=== PATIENT | male | born 1930 | race Caucasian/White ===

== ENCOUNTER → 2016-12-27 | Outpatient (CLI) | payer MEDICARE, OTHER ==
--- NOTE | 2016-12-28 08:09 | RAD ---
EXAM DESCRIPTION: Chest,2 Views CLINICAL HISTORY: HEART FAILURE COMPARISON: None TECHNIQUE: PA/lateral FINDINGS: The lungs are well expanded and clear. No infiltrates or effusions or masses are noted. The heart is normal in size and shape with no evidence of vascular congestion. The yolanda and mediastinum demonstrate normal contours. Mild anterior wedging of a lower dorsal vertebral segment likely represents an old finding. IMPRESSION: No acute cardiopulmonary disease. Electronically signed by: Jaiden Norwodo MD 12/28/2016 8:09 AM CDT
== END | disposition home or self-care (01) ==
LOC: RESP 15:44
PROVIDERS: ATTEND Nurse Practitioner Family
DX: I11.0 Hypertensive heart disease with heart failure (principal); I50.9 Heart failure, unspecified

== ENCOUNTER 2017-01-09 01:00 | Emergency (ER) | payer MEDICARE, OTHER ==
--- NOTE | 2017-01-09 01:21 | ED.PDOC ---
History of Present Illness - General Chief Complaint: Respiratory Problem Stated Complaint: SOB Time Seen by Provider: 01/09/17 01:17 Source: patient Exam Limitations: physical impairment - hard of hearing - History of Present Illness Initial Comments: Quang Black 86 y/o male stated that he got SOB while laying down on his bed tonight.No chest pains,no cough.Seen by his primary md for same symptoms and was prescribed lisinopril and carvedilol.He was told has problems with his aorta and heart valves.Denies chronic medical problems.Had ct/abd-p 04/08/15- ovoid complex mass left side pelvis,enlarged prostate,copd.Has appointment with cloth printing utility worker February 01. Timing/Duration: 1-3 hours Severity: moderate Activities at Onset: rest Possible Cause: occasional episodes Worsening Factors: nothing Associated Symptoms: denies symptoms Respiratory Risk Factors: no cause identified Allergies/Adverse Reactions: Allergies NO KNOWN ALLERGY Allergy (Verified 01/09/17 01:19) Home Medications: Ambulatory Orders Carvedilol [Coreg] 3.125 mg PO BID 01/09/17 Levothyroxine Sodium [Synthroid] 0.025 mg PO BEDTIME #30 tab 01/09/17 Lisinopril 10 mg PO DAILY 01/09/17 Review of Systems - Review of Systems Constitutional: States: no symptoms reported EENTM: States: no symptoms reported Respiratory: States: see HPI Cardiology: States: no symptoms reported Gastrointestinal/Abdominal: States: no symptoms reported Genitourinary: States: frequency Musculoskeletal: States: no symptoms reported Skin: States: no symptoms reported Neurological: States: no symptoms reported Endocrine: States: no symptoms reported Past Medical History (General) - Patient Medical History Surgical History: cholecystectomy - gastric surgery, other - Social History Hx Tobacco Use: No Hx Alcohol Use: Yes - Activities of Daily Living Patient Lives Alone: Yes - nephew lives nearby Family Medical History - Family History Mother Family History: Unknown Living Status: Physical Exam - Physical Exam General Appearance: Alert, No apparent distress Eyes, Ears, Nose, Throat Exam: PERRL/EOMI, normal ENT inspection, TMs normal, other - hard of hearing Neck: non-tender, full range of motion, supple Respiratory: chest non-tender, no respiratory distress, decreased breath sounds , other - pectus excavatum Cardiovascular/Chest: normal peripheral pulses, regular rate, rhythm, no gallop , systolic murmur - grade 3/6 systolic 2nd left ics Peripheral Pulses: radial,right: 1+, radial,left: 1+ Gastrointestinal/Abdominal: normal bowel sounds, non tender, soft, other - scars from previous surgery Extremity: non-tender, no pedal edema, no calf tenderness Neurologic: no motor/sensory deficits, alert, oriented x 3 Skin Exam: normal color, warm/dry Lymphatic: no adenopathy Progress - Progress Progress: 01/09/17 01:49 Vital Signs - 8 hr 01/09/17 01/09/17 01/09/17 01:00 01:13 01:47 Temperature 96.7 F L Pulse Rate 67 74 68 Pulse Rate [ 67 monitor] Respiratory 16 16 16 Rate Blood Pressure 148/82 [Left Arm] O2 Sat by Pulse 99 99 Oximetry 01/09/17 02:36 Has d-dimer 577 but saturating 95%-!00% room air no tachycardia or risk factors for PE.Patient presently feels better after one nebulizer treatment and iv solu medrol. - Results/Orders Results/Orders: Vital Signs - 8 hr 01/09/17 01/09/17 01/09/17 01:00 01:13 01:47 Temperature 96.7 F L Pulse Rate 67 74 68 Pulse Rate [ 67 monitor] Respiratory 16 16 16 Rate Blood Pressure 148/82 [Left Arm] O2 Sat by Pulse 99 99 Oximetry Has d-dimer 01/09/17 01:24 URINALYSIS Stat 01/09/17 01:27 SVN/Updraft Therapy .ONCE 01/09/17 01:30 EKG STAT 01/09/17 09:00 [facility] Daily Laboratory Results - last 24 hr 01/09/17 01/09/17 01/09/17 01:30 01:30 01:30 WBC 6.0 RBC 3.39 L Hgb 9.3 L Hct 28.8 L MCV 85.1 MCH 27.4 MCHC 32.3 L RDW 16.8 H Plt Count 235 MPV 7.9 Absolute Neuts (auto) 3.60 Absolute Lymphs (auto) 1.60 Absolute Monos (auto) 0.70 Absolute Eos (auto) 0.10 Absolute Basos (auto) 0.10 Neutrophils % 59.1 Lymphocytes % 26.5 Monocytes % 11.1 H Eosinophils % 2.2 Basophils % 1.1 PT 12.4 INR 1.100 PTT (SP) 36.9 H D-Dimer, Quantitative 577 H* Sodium 137 Potassium 4.7 Chloride 105 Carbon Dioxide 26 Anion Gap 10.7 L BUN 25 H Creatinine 1.42 H BUN/Creatinine Ratio 17.6 Random Glucose 107 H Serum Osmolality 278.7 Calcium 8.6 Magnesium 1.5 L Total Bilirubin 0.4 Direct Bilirubin < 0.1 Indirect Bilirubin 0.3 AST 16 ALT 10 Alkaline Phosphatase 64 Creatine Kinase 54 CK-MB (CK-2) 2.4 CK-MB (CK-2) % Not Reportable Troponin I 0.03 B-Natriuretic Peptide 242.0 H* Serum Total Protein 6.6 Albumin 2.9 L TSH 7.30 H - EKG/XRAY/CT EKG: Sinus, no ST T wave changes Comments: heart rate-66;PAC's XRAY: chest - no acute abnormalities/radiologist Departure - Departure Clinical Impression: Valvular heart disease, Anemia in chronic illness, Renal insufficiency, Hypomagnesemia Dyspnea Qualifiers: Dyspnea type: unspecified Qualified Code(s): R06.00 - Dyspnea, unspecified Hypothyroidism Qualifiers: Hypothyroidism type: unspecified Qualified Code(s): E03.9 - Hypothyroidism, unspecified Time of Disposition: 03:10 Disposition: Discharge to Home or Self Care Condition: Fair Departure Forms: ED Discharge - Pt. Copy, Patient Portal Self Enrollment Referrals: Barry Bennett MD [Primary Care Provider] - 1-2 Weeks Prescriptions: Levothyroxine Sodium [Synthroid] 0.025 mg PO BEDTIME #30 tab Home Medications: Ambulatory Orders Carvedilol [Coreg] 3.125 mg PO BID 01/09/17 Levothyroxine Sodium [Synthroid] 0.025 mg PO BEDTIME #30 tab 01/09/17 Lisinopril 10 mg PO DAILY 01/09/17 Additional Instructions: Keep appointment with cloth printing utility worker;Return to emergency room as needed;Continue with current medications
[2017-01-09 01:23] VITALS: TEMP 96.7
[2017-01-09] MEDS ORDERED: IPRATROPIUM/ALBUTEROL 3 ML VIAL NEB ONE (01:27)
[2017-01-09] MEDS ORDERED: methylPREDNISolone SODIUM SUC 125 MG/2 ML VIAL IV ONE (01:28)
--- NOTE | 2017-01-09 02:10 | RAD ---
EXAM: Two view chest. INDICATION: Chest pain. COMPARISON: Chest x-ray: 12/27/2016. FINDINGS: Cardiac silhouette: Unremarkable. Martine: Unremarkable. Lobar consolidation: None. Pleural effusion: None. Pneumothorax: None. Other: None. Bones: Unremarkable. Other: None. IMPRESSION: 1. No acute cardiopulmonary process. Electronically signed by: Yunier Dejesus MD 01/09/2017 2:09 AM CDT Workstation: [id number]
[2017-01-09] MEDS ORDERED: MAGNESIUM SULFATE PREMIX 2GM 2 GM in PREMIX BAG 1 BAG IVPB ONE (03:07)
[2017-01-09] MEDS ORDERED: MAGNESIUM SULFATE PREMIX 2GM 50 ML IVPB ONE (03:08)
[2017-01-09 04:19] VITALS: BP 134/74; O2SAT 99
== END 2017-01-09 04:19 | disposition home or self-care (01) ==
LOC: ER 01:00
DX: E83.42 Hypomagnesemia (principal); R06.00 Dyspnea, unspecified; E03.9 Hypothyroidism, unspecified; I38 Endocarditis, valve unspecified; J44.9 Chronic obstructive pulmonary disease, unspecified; N40.0 Benign prostatic hyperplasia without lower urinary tract symptoms; D63.8 Anemia in other chronic diseases classified elsewhere; Z79.899 Other long term (current) drug therapy
CPT/HCPCS: 36415; 71020; 80048; 80076; 82550; 82553; 83880; 84443; 84484; 85025; 85379; 85610; 85730; 93005; 94640; J2930; J3475; J7620

== ENCOUNTER → 2017-03-07 | Outpatient (CLI) | payer MEDICARE, OTHER ==
--- NOTE | 2017-03-08 10:06 | US ---
EXAM DESCRIPTION: Renal CLINICAL HISTORY: 86 years Male, CHRONIC KIDNEY DISEASE COMPARISON: None. FINDINGS: Right kidney is 9.3 x 4.6 x 4.7 cm. No perinephric fluid collections or hydronephrosis is noted. Two simple cyst involving the lower pole of the kidney are noted measuring 1.5 cm anteriorly and 1.2 cm posteriorly. No solid lesions are noted. Left kidney measures 9.6 x 6.9 x 4.3 cm. In the upper pole a simple 1.2 cm cyst is present. In the midpole laterally a septated 1.7 x 1.6 x 1.3 cm cyst is present with a slightly thickened septum through the central portion. Tiny amount of debris may be present dependently within the cyst. No definite solid mass or obstruction seen. With the history of chronic renal disease further evaluation of this complicated cyst with MRI without and with contrast enhancement is recommended. IMPRESSION: 1. Normal contour of the kidneys without cortical thinning or hydronephrosis. Benign simple cyst involving the lower pole of the right kidney and upper pole of the left kidney noted. 2. Complicated 1.7 cm cyst mid pole of the left kidney peripherally with internal septation and debris. Further evaluation with MRI without and with contrast enhancement is recommended. Electronically signed by: Jaiden Norwood MD 03/08/2017 10:04 AM CDT
== END | disposition home or self-care (01) ==
LOC: LAB.O 10:08
PROVIDERS: ATTEND Internal Medicine Nephrology
DX: N18.4 Chronic kidney disease, stage 4 (severe) (principal); N28.1 Cyst of kidney, acquired

== ENCOUNTER 2017-03-18 10:40 | Emergency (ER) | payer MEDICARE, OTHER ==
--- NOTE | 2017-03-18 10:48 | ED.PDOC ---
History of Present Illness - General Chief Complaint: Problem Stated Complaint: difficulty urination Time Seen by Provider: 03/18/17 10:47 Source: patient Exam Limitations: no limitations - History of Present Illness Initial Comments: Quang Black 86 y/o male stated that he had been having difficulty voiding the last 2 weeks and recently has dribbling of urine.Seen Dr. Mcghee last week was told that he has enlarged prostate and was advised to see urologist Timing/Duration: other - 2weeks ago Quality: sharpness Onset Location: suprapubic Radiation: none Activites at Onset: none Prior abdominal problems: none Worsening Factors: other - urination Associated Symptoms: urinary frequency Allergies/Adverse Reactions: Allergies NO KNOWN ALLERGY Allergy (Verified 01/09/17 01:19) Home Medications: Ambulatory Orders Carvedilol [Coreg] 3.125 mg PO BID 01/09/17 Levothyroxine Sodium [Synthroid] 50 mcg PO BEDTIME 03/18/17 Lisinopril & Hydrochlorothiazi [Lisinopril/Hctz 20-12.5 mg] 2 tab PO DAILY 03/18 Sulfamethoxazole-Trimethoprim [Bactrim Ds 800-160 mg] 1 tab PO BID #20 tab 03/18 Review of Systems - Review of Systems Constitutional: States: no symptoms reported EENTM: States: no symptoms reported Respiratory: States: no symptoms reported Cardiology: States: no symptoms reported Gastrointestinal/Abdominal: States: no symptoms reported Genitourinary: States: see HPI Past Medical History (General) - Patient Medical History Hx Seizures: No Hx Stroke: No Hx Dementia: No Hx Asthma: No Hx of COPD: No Hx Cardiac Disorders: Yes Hx Congestive Heart Failure: No Hx Pacemaker: No Hx Hypertension: Yes Hx Thyroid Disease: No Hx Diabetes: No Hx Gastroesophageal Reflux: No Hx Renal Disease: No Hx Cancer: No Hx of HIV: No Hx Hepatitis C: No Hx MRSA: No Surgical History: cholecystectomy, other - gastric - Vaccination History Hx Tetanus, Diphtheria Vaccination: - unknown Hx Influenza Vaccination: - unknown - Social History Hx Tobacco Use: No Hx Chewing Tobacco Use: Yes Hx Alcohol Use: Yes Hx Substance Use: No Hx Substance Use Treatment: No Hx Depression: No Hx Physical Abuse: No Hx Emotional Abuse: No Hx Suspected Abuse: No - Activities of Daily Living Patient Lives Alone: Yes - nephew nearby Grooming Ability: Independent Eating (Feeding) Ability: Independent Toileting Ability: Independent Family Medical History - Family History Mother Family History: Unknown Living Status: Hx Cardiac Disease: Yes - parents Physical Exam - Physical Exam General Appearance: Alert, No apparent distress Eyes, Ears, Nose, Throat Exam: PERRL/EOMI, normal ENT inspection Neck: non-tender, supple Cardiovascular/Respiratory: regular rate, rhythm, normal peripheral pulses, normal breath sounds, extra beats, murmur - grade 3/6 systolic murmur apex Gastrointestinal/Abdominal: soft, tenderness - suprapubic area Rectal Exam: tenderness - rectal orifice Male Genital Exam: normal genitalia, other - prostate enlarged Back Exam: no vertebral tenderness Extremity: no pedal edema, no calf tenderness Neurologic: alert, oriented x 3 Skin Exam: normal color, warm/dry Progress - Progress Progress: 03/18/17 11:03 Vital Signs - 8 hr 03/18/17 10:50 Temperature 96.2 F L Pulse Rate [ 66 Left Brachial] Respiratory 20 Rate Blood Pressure 120/66 [Left Arm] O2 Sat by Pulse 96 Oximetry - Results/Orders Results/Orders: Laboratory Last Values Sodium 137 mmol/L (135-145) 03/18/17 10:59 Potassium 4.4 mmol/L (3.6-5.0) 03/18/17 10:59 Chloride 105 mmol/L (101-111) 03/18/17 10:59 Carbon Dioxide 24 mmol/L (21-31) 03/18/17 10:59 Anion Gap 12.4 (12-18) 03/18/17 10:59 BUN 26 mg/dL (7-18) H 03/18/17 10:59 Creatinine 1.53 mg/dL (0.6-1.3) H 03/18/17 10:59 BUN/Creatinine Ratio 17.0 (10-20) 03/18/17 10:59 Random Glucose 91 mg/dL (70-105) 03/18/17 10:59 Serum Osmolality 278.2 mOsm/L (275-295) 03/18/17 10:59 Calcium 8.8 mg/dL (8.4-10.2) 03/18/17 10:59 Total Bilirubin 0.3 mg/dL (0.2-1.0) 03/18/17 10:59 AST 15 IU/L (10-42) 03/18/17 10:59 ALT 9 IU/L (10-60) L 03/18/17 10:59 Alkaline Phosphatase 64 IU/L (42-121) 03/18/17 10:59 Serum Total Protein 6.7 gm/dL (6.4-8.2) 03/18/17 10:59 Albumin 2.6 g/dl (3.2-5.5) L 03/18/17 10:59 Globulin 4.1 gm/dL (2.3-3.5) H 03/18/17 10:59 Albumin/Globulin Ratio 0.6 (1.1-1.9) L 03/18/17 10:59 03/18/17 11:21 URINALYSIS Stat Laboratory Results - last 24 hr 03/18/17 10:59 Sodium 137 Potassium 4.4 Chloride 105 Carbon Dioxide 24 Anion Gap 12.4 BUN 26 H Creatinine 1.53 H BUN/Creatinine Ratio 17.0 Random Glucose 91 Serum Osmolality 278.2 Calcium 8.8 Total Bilirubin 0.3 AST 15 ALT 9 L Alkaline Phosphatase 64 Serum Total Protein 6.7 Albumin 2.6 L Globulin 4.1 H Albumin/Globulin Ratio 0.6 L Renal ultrasound 03/07/2017: normal contour of the kidneys presence of complicated cyst midpole left kidney Vital Signs - 8 hr 03/18/17 10:50 Temperature 96.2 F L Pulse Rate [ 66 Left Brachial] Respiratory 20 Rate Blood Pressure 120/66 [Left Arm] O2 Sat by Pulse 96 Oximetry Laboratory Tests 03/18/17 03/18/17 10:59 11:21 Sodium 137 Potassium 4.4 Chloride 105 Carbon Dioxide 24 Anion Gap 12.4 BUN 26 H Creatinine 1.53 H BUN/Creatinine Ratio 17.0 Random Glucose 91 Serum Osmolality 278.2 Calcium 8.8 Total Bilirubin 0.3 AST 15 ALT 9 L Alkaline Phosphatase 64 Serum Total Protein 6.7 Albumin 2.6 L Globulin 4.1 H Albumin/Globulin Ratio 0.6 L Urine Color Yellow Urine Appearance Clear Urine pH 5.5 Ur Specific [place] 1.015 Urine Protein Negative Urine Glucose (UA) Negative Urine Ketones Negative Urine Blood Moderate H Urine Nitrite Negative Urine Bilirubin Negative Urine Urobilinogen 0.2 Ur Leukocyte Esterase Negative Urine RBC 3-5 H Urine WBC 0 Ur Epithelial Cells 0 Urine Bacteria 0 Departure - Departure Clinical Impression: Acute urinary retention, BPH with urinary obstruction Time of Disposition: 12:16 Disposition: Discharge to Home or Self Care Instructions: DI for Benign Prostatic Hyperplasia, DI for Urinary Retention in Men Referrals: KEVIN QURESHI IV, [employer] [Primary Care Provider] - 1-2 Weeks Prescriptions: Sulfamethoxazole-Trimethoprim [Bactrim Ds 800-160 mg] 1 tab PO BID #20 tab Home Medications: Ambulatory Orders Carvedilol [Coreg] 3.125 mg PO BID 01/09/17 Levothyroxine Sodium [Synthroid] 50 mcg PO BEDTIME 03/18/17 Lisinopril & Hydrochlorothiazi [Lisinopril/Hctz 20-12.5 mg] 2 tab PO DAILY 03/18 Sulfamethoxazole-Trimethoprim [Bactrim Ds 800-160 mg] 1 tab PO BID #20 tab 03/18 Additional Instructions: Follow up with primary md for referral to urologist 03/19/2017 call for appointment
[2017-03-18 10:55] VITALS: TEMP 96.2
[2017-03-18] MEDS ORDERED: SULFA/TRIMETH 800/160 (DS) TAB 1 EA TAB PO ONE (12:20)
[2017-03-18 12:42] VITALS: BP 143/79; O2SAT 94
== END 2017-03-18 12:42 | disposition home or self-care (01) ==
LOC: ER 10:40
DX: N40.1 Benign prostatic hyperplasia with lower urinary tract symptoms (principal); R33.8 Other retention of urine; N13.8 Other obstructive and reflux uropathy; I10 Essential (primary) hypertension; Z87.891 Personal history of nicotine dependence

== ENCOUNTER → 2017-03-19 | Outpatient (CLI) | payer MEDICARE, OTHER ==
--- NOTE | 2017-03-19 17:27 | CT ---
EXAM DESCRIPTION: Abdomen w/o Contrast CLINICAL HISTORY: CHRONIC RENAL INSUFFICIENCY STAGE 3 COMPARISON: US renal 03/07/17. TECHNIQUE: Spiral-axial scans at 5.0 mm intervals through the abdomen. Coronal and sagittal 2.0 mm reconstructions. No IV or oral contrast. Total DLP: 265.09 mGy - m2. This exam was performed according to our departmental dose-optimization program which includes automated exposure control, adjustment of the mA and/or kV according to patient size and/or use of iterative reconstruction technique; to reduce radiation dose to as low as reasonably achievable (ALARA). FINDINGS: Mesentery: The upper aspect of a large lower abdominal/upper pelvic mass is partially imaged and extends from the posterior upper mid pelvis to the anterior abdominal wall. The largest transverse diameter that is imaged is 18.1 cm transverse and 8.2 cm AP the mass is heterogeneously solid with elongated heterogeneous calcifications on the left side of the mass. Included mass does not demonstrate air-fluid level or gas bubbles. Displacing small bowel, colon, and abutting the psoas muscle just above the iliopsoas junction. No free air. Small Bowel: Surgical clips and suture material noted in the epigastrium and left upper quadrant which may indicate a gastric bypass, or other proximal small bowel surgery, with possible anastomosis. Gas and fluid in the distal small bowel, displaced superiorly by the mass. No gas-filled distended loops of small bowel.. Terminal Ileum/Cecum: Minimally distended by fluid. Displaced by mass. Colon: Distal descending colon and transverse colon is distended by gas with air-fluid levels. Proximal ascending colon distended by fluid. There is minimal distention with air-fluid levels in the included distal descending colon and proximal sigmoid colon. Lung bases and pleura: Unremarkable. Upper Abdominal organs: Normal density and size of the liver, spleen and adrenal glands. Air-fluid level in the stomach with adjacent surgical clips. Pancreas/Gallbladder/Ducts: Surgical clips in the gallbladder fossa and possible fluid. Pancreas normal density with clips anterior and superior. Kidneys: At least two masses in the inferior right kidney and one in the superior pole of the left kidney with Hounsfield density less than 20. No hydronephrosis or perinephric fluid or radiodense stones in the kidneys are included ureters. Aorta: Moderate atherosclerotic calcification including calcification of the bilateral renal ostia in the celiac axis. Spine: Compression type fracture anterior T12 inferior endplate. Decreased bone density. Spondylosis. Midline protrusion L5-S1 disc posterior. Abdominal Wall/Back Soft Tissues: Unremarkable. IMPRESSION: 1. Partially imaged large mass in the lower abdomen and upper pelvis in the midline displacing small bowel: And mesentery. Irregular elongated calcifications noted in the left side of the mass. No gas bubbles. Appears mostly peritoneal and abutting the anterior abdominal wall. With calcifications, and location, consider malignant tumor originating from colon or genitourinary structure. With history of poor renal function, consider CT scan of the pelvis with oral/rectal contrast, single contrast barium enema, MRI scan of the pelvis and lower abdomen with reduced gadolinium IV. 2. Dilation of colon could indicate bowel stasis or impending obstruction. Bowel stasis in the small bowel. Surgical clips suggesting gastric bypass and small bowel anastomotic surgery. No free air. 3. No perirenal fluid hydronephrosis or radiodense stones in the kidneys. Bilateral cysts. 4. Atherosclerotic disease in the aorta and bilateral renal ostia. CRITICAL COMMUNICATION: The critical value was discussed directly by phone with Mr. Dante Dominique, nurse practitioner at approximately 1645 hours, on March 19, 2017. Electronically signed by: Fan Farooq MD 03/19/2017 5:26 PM CDT
== END | disposition home or self-care (01) ==
LOC: LAB.O 09:53
PROVIDERS: ATTEND Nurse Practitioner Family
DX: N18.3 Chronic kidney disease, stage 3 (moderate) (principal)

== ENCOUNTER → 2017-03-20 | Outpatient (CLI) | payer MEDICARE, OTHER ==
--- NOTE | 2017-03-20 16:59 | CT ---
EXAM DESCRIPTION: Abdoment/Pelvis w/o Contrast CLINICAL HISTORY: UNSPECIFIED ABDOMINAL PAIN abdominal and pelvic mass. COMPARISON: CT scan of the abdomen without contrast 03/19/2017. CT scan of the abdomen and pelvis with IV contrast 03/29/2015. TECHNIQUE: Spiral-axial scans at 5.0 mm intervals through the abdomen and pelvis after water-soluble oral contrast ; no nonionic IV contrast. reconstructions. No delayed scans. Total Exam DLP: 416.38 mGy-cm. This exam was performed according to our departmental dose-optimization program which includes automated exposure control, adjustment of the mA and/or kV according to patient size and/or use of iterative reconstruction technique; to reduce radiation dose to as low as reasonably achievable (ALARA). FINDINGS: Pelvic Organs and mesentery: Again noted is heterogeneously dense mass with the lower region at the level of the superior urinary bladder and the upper margin just below the level of the right iliac crest. 18.4 cm transverse and 7.5 cm AP. The mass has a suggestion of a bilobed appearance with the craniocaudal dimension of the left lobe 11.8 cm and the right lobe 10.4 cm, with the isthmus of the mass essentially in the midline of the pelvis. Elongated irregular calcifications on the left. No oral contrast material in the mass. Mass is displacing the contrast-filled small bowel and the sigmoid colon. Also mass effect on the bilateral psoas muscles in the anterior abdominal wall borders are relatively well-defined with fatty interfaces between the mass and other organs including urinary bladder, suggesting mesenteric origin. Peritoneal location. No significant amount of fluid in the cul-de-sac. No free air. The mass has enlarged compared to a similar appearing mass posterior to the left of midline on the prior scan in March 2015. Enlarged prostate gland again seen to be impressing on the base of the urinary bladder with calcifications and bladder wall thickening. Bladder is nondistended. Small Bowel: Oral contrast seen throughout the small bowel with some air-fluid levels. Ileum is displaced into the anterior right abdomen and jejunum displaced into the anterior and lateral left abdomen. No evidence of obstruction. Mass effect prominently anterior pelvis on the ileum. Terminal Ileum/Cecum: Normal caliber containing oral contrast. Appendix not seen. No significant air-fluid levels. Colon: Minimal distention of the upper ascending colon transverse colon with air-fluid levels. Sigmoid colon is moderately redundant and displaced superiorly by the mass. No obstruction. Minimal distention of the rectum. No contrast extravasation. Lung bases and pleura: Stable. Liver, Stomach, Spleen, and adrenal glands: Unchanged. Pancreas, Gallbladder, Ducts: Stable. Kidneys and Ureters: Unchanged. Aorta: Stable. Spine and Bony Pelvis: Unchanged. Abdominal Wall/Back Soft Tissues: Stable. 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 Doubled or tripled in size since the prior study in 2014. Possibly bilobed with the isthmus near the midline and long axis right to left, and 18 cm. Differential includes desmoid tumor, carcinoid tumor, extrinsic small bowel GIST, sarcoma, other mesenchymal tumor of mesenteric origin. No bowel obstruction, no free air, no oral contrast extravasation. No other organ invasion or bony invasion. Consider surgical consult. Electronically signed by: Fan Farooq MD 03/20/2017 4:58 PM CDT
== END | disposition home or self-care (01) ==
LOC: LAB.O 08:16
PROVIDERS: ATTEND Nurse Practitioner Family
DX: R10.9 Unspecified abdominal pain (principal)

== ENCOUNTER → 2017-05-21 | Outpatient (CLI) | payer MEDICARE, OTHER | END | disposition home or self-care (01) | LOC: GT 06:13 | PROVIDERS: ATTEND Internal Medicine | DX: D50.9 Iron deficiency anemia, unspecified (principal); E03.9 Hypothyroidism, unspecified ==

== ENCOUNTER → 2017-07-04 | Outpatient (CLI) | payer MEDICARE, OTHER | END | disposition home or self-care (01) | LOC: GT 07:08 | PROVIDERS: ATTEND Internal Medicine | DX: N28.9 Disorder of kidney and ureter, unspecified (principal); I10 Essential (primary) hypertension; D50.9 Iron deficiency anemia, unspecified; E64.0 Sequelae of protein-calorie malnutrition ==

== ENCOUNTER 2017-07-16 03:19 | Emergency (ER) | payer MEDICARE, OTHER ==
[2017-07-16 03:35] VITALS: TEMP 98.2
--- NOTE | 2017-07-16 03:38 | ED.PDOC ---
History of Present Illness - General Chief Complaint: Respiratory Problem Stated Complaint: short of breath Time Seen by Provider: 07/16/17 03:34 Source: patient Exam Limitations: no limitations Additional Information: 86 YEAR OLD BROUGHT FROM 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 TOMORROW HE IS SUPPOSED TO MEET WITH THE SURGEON TO FIND OUT THE ETIOLOGY - History of Present Illness Timing/Duration: 1 week Severity: moderate Activities at Onset: activity Possible Cause: occasional episodes Improving Factors: rest Associated Symptoms: denies symptoms Respiratory Risk Factors: no cause identified Allergies/Adverse Reactions: Allergies NO KNOWN ALLERGY Allergy (Verified 07/16/17 03:35) Home Medications: Ambulatory Orders Carvedilol [Coreg] 3.125 mg PO BID 01/09/17 Levothyroxine Sodium [Synthroid] 50 mcg PO BEDTIME 03/18/17 Amlodipine Besylate [Norvasc] 2.5 mg PO 07/16/17 Azithromycin Tab [Zithromax Tab] 250 mg PO QDPC #6 tab 07/16/17 Ferrous Sulfate [Iron] 65 mg PO 07/16/17 Pantoprazole Sodium 40 mg PO 07/16/17 Tramadol HCl 50 mg PO 07/16/17 Review of Systems - Review of Systems Constitutional: States: see HPI EENTM: States: no symptoms reported Respiratory: States: cough, short of breath Cardiology: States: see HPI Gastrointestinal/Abdominal: States: no symptoms reported Genitourinary: States: no symptoms reported Musculoskeletal: States: no symptoms reported Skin: States: no symptoms reported Neurological: States: no symptoms reported Endocrine: States: no symptoms reported Hematologic/Lymphatic: States: no symptoms reported Past Medical History (General) - Patient Medical History Hx Seizures: No Hx Stroke: No Hx Dementia: No Hx Asthma: No Hx of COPD: No Hx Cardiac Disorders: Yes Hx Congestive Heart Failure: No Hx Pacemaker: No Hx Hypertension: Yes Hx Thyroid Disease: No Hx Diabetes: No Hx Gastroesophageal Reflux: No Hx Renal Disease: No Hx Cancer: No Hx of HIV: No Hx Hepatitis C: No Hx MRSA: No - Vaccination History Hx Tetanus, Diphtheria Vaccination: - unknown Hx Influenza Vaccination: - unknown Hx Pneumococcal Vaccination: No - Social History Hx Tobacco Use: No Hx Chewing Tobacco Use: Yes Hx Alcohol Use: Yes Hx Substance Use: No Hx Substance Use Treatment: No Hx Depression: No Hx Physical Abuse: No Hx Emotional Abuse: No Hx Suspected Abuse: No Family Medical History - Family History Mother Family History: Unknown Living Status: Hx Cardiac Disease: Yes - parents Physical Exam - Physical Exam General Appearance: Alert, Comfortable Eyes, Ears, Nose, Throat Exam: PERRL/EOMI, normal ENT inspection, TMs normal, pharynx normal Neck: non-tender, full range of motion, supple Respiratory: chest non-tender, no respiratory distress, no accessory muscle use , rales Cardiovascular/Chest: normal peripheral pulses, regular rate, rhythm, no edema, no gallop, no JVD, systolic murmur Peripheral Pulses: radial,right: 2+, radial,left: 2+, femoral,right: 2+, femoral ,left: 2+ Gastrointestinal/Abdominal: normal bowel sounds, non tender, soft, no organomegaly, no pulsatile mass Extremity: normal range of motion, non-tender, no pedal edema 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 Copy, Patient Portal Self Enrollment Diet: resume usual diet Activity: walking as tolerated Referrals: KEVIN QURESHI [employer] [Primary Care Provider] - 1-2 Weeks Prescriptions: Azithromycin Tab [Zithromax Tab] 250 mg PO QDPC #6 tab Home Medications: Ambulatory Orders Carvedilol [Coreg] 3.125 mg PO BID 01/09/17 Levothyroxine Sodium [Synthroid] 50 mcg PO BEDTIME 03/18/17 Amlodipine Besylate [Norvasc] 2.5 mg PO 07/16/17 Azithromycin Tab [Zithromax Tab] 250 mg PO QDPC #6 tab 07/16/17 Ferrous Sulfate [Iron] 65 mg PO 07/16/17 Pantoprazole Sodium 40 mg PO 07/16/17 Tramadol HCl 50 mg PO 07/16/17
[2017-07-16] MEDS ORDERED: FUROSEMIDE INJ 40 MG/4 ML VIAL IV ONE (03:45)
--- NOTE | 2017-07-16 04:23 | RAD ---
Examination: XR CHEST 1 VIEW dated 07/16/2017 3:44 AM PHARMACY OPERATIONS COORDINATOR History: CHF Comparison: 01/09/2017 Technique: Frontal view of the chest Findings: There is bilateral peribronchial cuffing and peribronchial thickening. No pneumothorax or pleural effusion. The cardiomediastinal silhouette is within normal limits. Impression: Peribronchial thickening may be seen with bronchitis or atypical infection. Electronically signed by: Herb Hoko MD 07/16/2017 4:22 AM PHARMACY OPERATIONS COORDINATOR
[2017-07-16] MEDS ORDERED: AZITHROMYCIN 250 MG TAB PO ONE ×2 (04:46→04:49)
[2017-07-16 06:54] VITALS: BP 132/74; O2SAT 96
== END 2017-07-16 06:54 ==
LOC: ER 03:19
DX: J40 Bronchitis, not specified as acute or chronic (principal); F17.220 Nicotine dependence, chewing tobacco, uncomplicated; I10 Essential (primary) hypertension; D49.89 Neoplasm of unspecified behavior of other specified sites
CPT/HCPCS: 36415; 71045; 80053; 83880; 85025; 85610; 85730; 93005; J1940; Q0144

== ENCOUNTER → 2017-09-21 | Outpatient (CLI) | payer MEDICARE, OTHER | LOC: GT 13:06 | PROVIDERS: ATTEND Internal Medicine | DX: N39.0 Urinary tract infection, site not specified (principal) ==

== ENCOUNTER → 2017-10-01 | Outpatient (CLI) | payer MEDICARE, OTHER ==
--- NOTE | 2017-10-02 07:45 | CT ---
EXAM DESCRIPTION: Abdoment/Pelvis w/o Contrast CLINICAL HISTORY: ABD PAIN COMPARISON: March 20, 2017 and March 29, 2015 TECHNIQUE: CT of the abdomen and Pelvis was performed without IV contrast. This exam was performed according to our departmental dose-optimization program, which includes automated exposure control, adjustment of the mA and/or kV according to patient size and/or use of iterative reconstruction technique. FINDINGS: There is a rounded low to intermediate density pelvic mass at into the right of midline just superior to and results in slight mass effect on the bladder measuring up to 10.6 cm AP by 10.3 cm craniocaudal by 7.7 cm transverse. The mass appears decreased in size from February, when a large more solid appearing component extended left of midline. The solid component only was present in March,. No internal gas to suggest abscess, with limited evaluation due to lack of IV contrast. Mass effect on the bladder roof as detailed above without bladder wall thickening. No adenopathy or ascites. No pneumoperitoneum. No dilated small bowel loops. Postoperative changes are noted in the left side of the colon along the left side of the mass with additional postoperative changes elsewhere in the abdomen. Mural calcifications in the abdominal aorta without aneurysm. The prostate is enlarged, measuring 5.4 cm transverse diameter. The gallbladder is not identified and is likely surgically absent. There is a small round low density lesion in the left hepatic lobe, stable from March, and probably representing a cyst. There is an additional less well-defined low-density lesion in the posterior segment of the right hepatic lobe, also stable from March, and likely benign. The spleen, pancreas and adrenals are unremarkable for noncontrast technique. There are a few round low density lesions in both kidneys, incompletely characterized on this exam but probably representing cysts. Trace amount of pericardial fluid. No lung base abnormality. No concerning bone lesion. There is an old T12 compression fracture, stable. IMPRESSION: 10 cm low to intermediate density round mass in the lower abdomen and pelvis just superior to the bladder with mass effect on the bladder roof. The mass is decreased in size from February,, question interval surgery. Limited evaluation due to lack of IV contrast and differential considerations include residual or recurrent neoplasm. Hematoma or abscess are additional considerations. CT with oral and IV contrast would be helpful for further evaluation. No obstruction, pneumoperitoneum or other acute complication. Enlarged prostate, correlate with serum PSA evaluation. Low-density hepatic and renal lesions, incompletely characterized on this exam but probably representing cysts. Electronically signed by: Raul Morfin MD 10/02/2017 7:44 AM CDT
== END | disposition home or self-care (01) ==
LOC: LAB 15:29
PROVIDERS: ATTEND Internal Medicine
DX: D50.9 Iron deficiency anemia, unspecified (principal); R10.84 Generalized abdominal pain; R19.09 Other intra-abdominal and pelvic swelling, mass and lump; E64.0 Sequelae of protein-calorie malnutrition; R19.07 Generalized intra-abdominal and pelvic swelling, mass and lump; R63.0 Anorexia